=== PATIENT | male | born 1980 | race Caucasian/White ===

== ENCOUNTER 2017-09-08 00:41 | Inpatient (IN) | payer MEDICARE, MEDICAID ==
[~2017-09-08] VITALS: Ht 172.7 cm; Wt 78.5 kg
[~2017-09-08 00:41] MED LIST: ASCO-360 PO; FOLI1TAB15 PO; LEVE250T2 PO; LITH300T3 PO; PHEN60TA15 PO; PREG100C PO; QUET50TA PO; SERT25TA PO; TRAZ-144 PO; ZINC220T PO
[2017-09-08 08:50] VITALS: BP 132/68
[2017-09-08 10:31] VITALS: BP 132/68
[2017-09-08] MEDS: LORazepam 2 MG TABLET PO PRN ×2 (13:17→20:38)
[2017-09-08] MEDS: LamoTRIgine 100 MG TABLET PO SCH (16:55)
[2017-09-08] MEDS: LevETIRAcetam 500 MG TABLET PO SCH (16:55)
[2017-09-08 17:11] VITALS: BP 104/58
[2017-09-08 17:12] VITALS: BP 104/58
[2017-09-08] MEDS ORDERED: IBUPROFEN 400 MG TABLET PO PRN (18:45)
[2017-09-08] MEDS ORDERED: ACETAMINOPHEN 325 MG TABLET PO PRN (18:45)
[2017-09-08 20:36] VITALS: BP 130/81
[2017-09-09 06:20] VITALS: BP 120/68
[2017-09-09] MEDS: LamoTRIgine 100 MG TABLET PO SCH (08:57)
[2017-09-09] MEDS: LevETIRAcetam 500 MG TABLET PO SCH ×2 (08:58→16:23)
[2017-09-09 09:11] LABS: BASOPHILS % (AUTO) 0.8 % (0.0-2.0); EOSINOPHILS % (AUTO) 1.1 % (1.0-6.0); HEMATOCRIT 43.2 % (41-53); HEMOGLOBIN 15.4 g/dL (13.5-17.5); LYMPHOCYTES # (AUTO) 1.5 K/uL (1.0-4.8); LYMPHOCYTES % (AUTO) 21.8 % (22.0-44.0); MEAN CORPUSCULAR HEMOGLOBIN 29.7 pg (26.0-34.0); MEAN CORPUSCULAR HGB CONC 35.5 G/dL (31.0-37.0); MEAN CORPUSCULAR VOLUME 84 fL (80-100); MONOCYTES # (AUTO) 0.4 K/uL (0.1-1.0); NEUTROPHILS # (AUTO) 4.8 K/uL (1.8-7.7); NEUTROPHILS % (AUTO) 70.3 % (40.0-70.0); PLATELET COUNT (AUTO) 130 K/uL (150-450); RED BLOOD CELL COUNT(AUTO) 5.18 MIL/uL (4.50-5.90); RED CELL DISTRIBUTION WIDTH 13.4 % (11.5-14.5)
[2017-09-09 09:23] VITALS: BP 109/52
[2017-09-09 09:30] LABS: HEMOGLOBIN A1C 5.6 % (4.5-6.2)
[2017-09-09 09:51] LABS: ALANINE AMINOTRANSFERASE 47 U/L (12-78); ALBUMIN 3.5 g/dL (3.4-5.0); ALKALINE PHOSPHATASE 77 U/L (46-116); ANION GAP 11 mmol/L (8-16); ASPARTATE AMINOTRANSFERASE 30 U/L (15-37); BILIRUBIN,TOTAL 0.9 mg/dL (0.1-1.0); CALCIUM, TOTAL 8.5 mg/dL (8.8-10.5); CARBON DIOXIDE 23 mmol/L (22-29); CHLORIDE 104 mmol/L (98-107); CHOL/HDL RATIO 6.8 (4.2-7.3); CHOLESTEROL 176 mg/dL (131-200); CREATININE 0.79 mg/dL (0.60-1.30); GLOMERULAR FILTR. RATE CALC > 60 mL/min (>60); GLUCOSE,RANDOM 91 mg/dL (70-110); HDL CHOLESTEROL 26 mg/dL (40-60); LDL CHOL (CALC.) 124 mg/dL (0-130); POTASSIUM 3.5 mmol/L (3.5-5.1); SODIUM SERUM 138 mmol/L (136-145); THYROID STIMULATING HORMONE 1.16 uIU/mL (0.36-3.74); TOTAL PROTEIN, SERUM 7.1 g/dL (6.4-8.2); TRIGLYCERIDES 130 mg/dL (15-150); UREA NITROGEN, BLOOD 18 mg/dL (7-18)
[2017-09-09] MEDS ORDERED: LORazepam 2 MG/ML VIAL IM ONE (12:00)
[2017-09-09 12:18] LABS: GLUCOMETER DEV NAME(LOC) 3EI B; GLUCOSE,POINT OF CARE 89 MG/DL (70-110)
[2017-09-09] MEDS: QUEtiapine FUMARATE 100 MG TABLET PO SCH ×2 (12:44→16:24)
[2017-09-09] MEDS ORDERED: ONDANSETRON HCL 4 MG TABLET PO PRN (12:45)
[2017-09-09 13:00] VITALS: BP 101/44
[2017-09-09 13:35] VITALS: BP 98/65
[2017-09-09 16:00] VITALS: BP 99/57
[2017-09-09] MEDS: LITHIUM CARBONATE 300 MG CAPSULE PO SCH (16:23)
[2017-09-09] MEDS: TraZODone HCL 100 MG TABLET PO SCH (20:08)
[2017-09-09 20:11] VITALS: BP 102/56
[2017-09-09] MEDS ORDERED: PHENYTOIN SODIUM 100 MG ER CAPSULE PO SCH (21:00)
[2017-09-10 00:02] VITALS: BP 98/50
[2017-09-10 04:00] VITALS: BP 104/72
[2017-09-10 08:00] VITALS: BP 108/65
[2017-09-10] MEDS: QUEtiapine FUMARATE 100 MG TABLET PO SCH ×3 (09:16→16:24)
[2017-09-10] MEDS: LevETIRAcetam 500 MG TABLET PO SCH ×2 (09:16→16:21)
[2017-09-10] MEDS: LamoTRIgine 100 MG TABLET PO SCH ×2 (09:16→16:20)
[2017-09-10] MEDS: LITHIUM CARBONATE 300 MG CAPSULE PO SCH ×2 (09:17→16:20)
[2017-09-10] MEDS: SERTRALINE HCL 50 MG TABLET PO SCH (09:17)
[2017-09-10 12:28] VITALS: BP 107/79
[2017-09-10] MEDS: LORazepam 2 MG TABLET PO PRN ×2 (12:36→19:44)
[2017-09-10 18:51] VITALS: BP 96/61
[2017-09-10 20:00] VITALS: BP 96/56
[2017-09-10] MEDS: TraZODone HCL 100 MG TABLET PO SCH (20:42)
[2017-09-10] MEDS ORDERED: LORazepam 2 MG TABLET PO ONE (22:45)
[2017-09-11 02:47] VITALS: BP 90/58
[2017-09-11 08:00] VITALS: BP 112/78
[2017-09-11] MEDS: LITHIUM CARBONATE 300 MG CAPSULE PO SCH ×2 (10:11→17:06)
[2017-09-11] MEDS: LORazepam 2 MG TABLET PO PRN (10:11)
[2017-09-11] MEDS: QUEtiapine FUMARATE 100 MG TABLET PO SCH ×3 (10:11→17:06)
[2017-09-11] MEDS: LevETIRAcetam 500 MG TABLET PO SCH ×2 (10:11→17:06)
[2017-09-11] MEDS: SERTRALINE HCL 50 MG TABLET PO SCH (10:12)
[2017-09-11] MEDS: LamoTRIgine 100 MG TABLET PO SCH ×2 (10:12→17:06)
[2017-09-11] MEDS: TraMADol HCL 50 MG TABLET PO PRN (13:34)
[2017-09-11] MEDS: TraZODone HCL 100 MG TABLET PO SCH (21:28)
[2017-09-11 21:45] VITALS: BP 102/59
[2017-09-12 08:21] VITALS: BP 94/54
[2017-09-12] MEDS: LevETIRAcetam 500 MG TABLET PO SCH ×2 (08:21→16:21)
[2017-09-12] MEDS: SERTRALINE HCL 50 MG TABLET PO SCH (08:21)
[2017-09-12] MEDS: LamoTRIgine 100 MG TABLET PO SCH ×2 (08:21→16:21)
[2017-09-12] MEDS: LORazepam 2 MG TABLET PO PRN ×3 (08:21→17:32)
[2017-09-12] MEDS: LITHIUM CARBONATE 300 MG CAPSULE PO SCH ×2 (08:21→16:21)
[2017-09-12] MEDS: QUEtiapine FUMARATE 100 MG TABLET PO SCH ×3 (08:21→16:21)
[2017-09-12] MEDS: TraMADol HCL 50 MG TABLET PO PRN (08:21)
[2017-09-12] MEDS ORDERED: LORazepam 2 MG/ML VIAL ONE (14:31)
[2017-09-12 14:47] LABS: GLUCOMETER DEV NAME(LOC) 3EX 1; GLUCOSE,POINT OF CARE 87 MG/DL (70-110)
[2017-09-12 16:00] VITALS: BP 100/57
[2017-09-12] MEDS: TraZODone HCL 100 MG TABLET PO SCH (20:26)
[2017-09-13] MEDS: LORazepam 2 MG TABLET PO PRN ×4 (03:26→19:14)
[2017-09-13 03:27] VITALS: BP 102/69
[2017-09-13 03:32] LABS: GLUCOMETER DEV NAME(LOC) 3EI B; GLUCOSE,POINT OF CARE 99 MG/DL (70-110)
[2017-09-13] MEDS: LevETIRAcetam 500 MG TABLET PO SCH ×2 (08:07→16:48)
[2017-09-13] MEDS: QUEtiapine FUMARATE 100 MG TABLET PO SCH ×3 (08:07→16:49)
[2017-09-13] MEDS: LITHIUM CARBONATE 300 MG CAPSULE PO SCH ×2 (08:08→16:49)
[2017-09-13] MEDS: SERTRALINE HCL 100 MG TABLET PO SCH (08:08)
[2017-09-13] MEDS: LamoTRIgine 100 MG TABLET PO SCH ×2 (08:08→16:49)
[2017-09-13 10:42] VITALS: BP 112/61
[2017-09-13] MEDS: TraMADol HCL 50 MG TABLET PO PRN ×2 (11:07→19:13)
[2017-09-13 13:57] LABS: GLUCOMETER DEV NAME(LOC) 3EX 1; GLUCOSE,POINT OF CARE 84 MG/DL (70-110)
[2017-09-13 17:00] VITALS: BP 121/60
[2017-09-13 19:00] VITALS: BP 107/65
[2017-09-13 20:13] VITALS: BP 98/57
[2017-09-13] MEDS: TraZODone HCL 100 MG TABLET PO SCH (20:25)
[2017-09-13 22:33] LABS: GLUCOMETER DEV NAME(LOC) 3EI B; GLUCOSE,POINT OF CARE 137 MG/DL (70-110)
[2017-09-14] VITALS (7 sets, daily range): BP systolic 90–112; BP diastolic 54–72
[2017-09-14] MEDS: HALOPERIDOL 5 MG TABLET PO PRN (00:38)
[2017-09-14] MEDS: QUEtiapine FUMARATE 100 MG TABLET PO SCH ×3 (09:00→16:28)
[2017-09-14] MEDS: SERTRALINE HCL 100 MG TABLET PO SCH (09:00)
[2017-09-14] MEDS: LITHIUM CARBONATE 300 MG CAPSULE PO SCH ×2 (09:00→16:28)
[2017-09-14] MEDS: LevETIRAcetam 500 MG TABLET PO SCH ×2 (09:00→16:28)
[2017-09-14] MEDS: LamoTRIgine 100 MG TABLET PO SCH ×2 (09:00→16:28)
[2017-09-14] MEDS: LORazepam 2 MG TABLET PO PRN ×4 (12:58→21:19)
[2017-09-14] MEDS: TraZODone HCL 100 MG TABLET PO SCH (20:25)
[2017-09-14] MEDS: TraMADol HCL 50 MG TABLET PO PRN (21:19)
[2017-09-15 04:15] VITALS: BP 114/72
[2017-09-15] MEDS: LORazepam 2 MG TABLET PO PRN ×3 (04:18→20:39)
[2017-09-15 08:30] VITALS: BP 99/57
[2017-09-15] MEDS: LevETIRAcetam 500 MG TABLET PO SCH ×2 (09:35→17:38)
[2017-09-15] MEDS: LITHIUM CARBONATE 300 MG CAPSULE PO SCH ×2 (09:35→17:38)
[2017-09-15] MEDS: QUEtiapine FUMARATE 100 MG TABLET PO SCH ×3 (09:35→17:39)
[2017-09-15] MEDS: SERTRALINE HCL 100 MG TABLET PO SCH (09:35)
[2017-09-15] MEDS: LamoTRIgine 100 MG TABLET PO SCH ×2 (09:35→17:38)
[2017-09-15] MEDS: HALOPERIDOL 5 MG TABLET PO PRN (13:09)
[2017-09-15 17:35] VITALS: BP 101/60
[2017-09-15] MEDS: TraZODone HCL 100 MG TABLET PO SCH (20:39)
[2017-09-16 06:53] VITALS: BP 116/61
[2017-09-16 08:55] VITALS: BP 112/67
[2017-09-16] MEDS: LamoTRIgine 100 MG TABLET PO SCH ×2 (09:06→17:03)
[2017-09-16] MEDS: LevETIRAcetam 500 MG TABLET PO SCH ×2 (09:06→17:03)
[2017-09-16] MEDS: SERTRALINE HCL 100 MG TABLET PO SCH (09:06)
[2017-09-16] MEDS: QUEtiapine FUMARATE 100 MG TABLET PO SCH ×3 (09:06→17:03)
[2017-09-16] MEDS: LITHIUM CARBONATE 300 MG CAPSULE PO SCH ×2 (09:06→17:03)
[2017-09-16] MEDS: LORazepam 2 MG TABLET PO PRN (09:09)
[2017-09-16] MEDS: TraMADol HCL 50 MG TABLET PO PRN (12:02)
[2017-09-16 12:04] VITALS: BP 108/67
[2017-09-16] MEDS: HALOPERIDOL 5 MG TABLET PO PRN (12:04)
[2017-09-16 13:05] VITALS: BP 103/59
[2017-09-16 16:10] VITALS: BP 117/71
[2017-09-16] MEDS: TraZODone HCL 100 MG TABLET PO SCH (20:55)
[2017-09-17] VITALS (7 sets, daily range): BP systolic 97–117; BP diastolic 59–71
[2017-09-17] MEDS: LORazepam 2 MG TABLET PO PRN ×3 (02:04→21:07)
[2017-09-17] MEDS: SERTRALINE HCL 100 MG TABLET PO SCH (08:42)
[2017-09-17] MEDS: LITHIUM CARBONATE 300 MG CAPSULE PO SCH ×2 (08:42→16:15)
[2017-09-17] MEDS: QUEtiapine FUMARATE 100 MG TABLET PO SCH ×3 (08:42→16:14)
[2017-09-17] MEDS: LamoTRIgine 100 MG TABLET PO SCH ×2 (08:42→16:15)
[2017-09-17] MEDS: LevETIRAcetam 500 MG TABLET PO SCH ×2 (08:42→16:15)
[2017-09-17 18:24] LABS: GLUCOMETER DEV NAME(LOC) 3EX 1; GLUCOSE,POINT OF CARE 207 MG/DL (70-110)
[2017-09-17] MEDS: TraMADol HCL 50 MG TABLET PO PRN (20:16)
[2017-09-17] MEDS: TraZODone HCL 100 MG TABLET PO SCH (20:16)
[2017-09-18 02:30] VITALS: BP 97/59
[2017-09-18 08:02] LABS: FREE T4 (FREE THYROXINE) 0.64 ng/dL (0.76-1.46); THYROID STIMULATING HORMONE 10.33 uIU/mL (0.36-3.74)
[2017-09-18] MEDS: LamoTRIgine 100 MG TABLET PO SCH ×2 (08:18→16:06)
[2017-09-18] MEDS: LevETIRAcetam 500 MG TABLET PO SCH ×2 (08:18→16:06)
[2017-09-18] MEDS: SERTRALINE HCL 100 MG TABLET PO SCH (08:18)
[2017-09-18] MEDS: LITHIUM CARBONATE 300 MG CAPSULE PO SCH ×2 (08:18→16:06)
[2017-09-18] MEDS: QUEtiapine FUMARATE 100 MG TABLET PO SCH ×3 (08:18→16:06)
[2017-09-18 08:45] VITALS: BP 106/64
[2017-09-18 11:12] VITALS: BP 114/63
[2017-09-18] MEDS: TraMADol HCL 50 MG TABLET PO PRN ×2 (11:12→20:08)
[2017-09-18] MEDS: LORazepam 2 MG TABLET PO PRN ×2 (11:12→20:08)
[2017-09-18 20:08] VITALS: BP 112/67
[2017-09-18] MEDS: TraZODone HCL 100 MG TABLET PO SCH (20:08)
[2017-09-18 21:33] VITALS: BP 112/67
[2017-09-18] MEDS: HALOPERIDOL 5 MG TABLET PO PRN (22:58)
[2017-09-19 02:45] VITALS: BP 99/66
[2017-09-19] MEDS: SERTRALINE HCL 100 MG TABLET PO SCH (08:00)
[2017-09-19] MEDS: LamoTRIgine 100 MG TABLET PO SCH (08:00)
[2017-09-19] MEDS: LITHIUM CARBONATE 300 MG CAPSULE PO SCH (08:00)
[2017-09-19] MEDS: QUEtiapine FUMARATE 100 MG TABLET PO SCH ×2 (08:01→12:42)
[2017-09-19] MEDS: LevETIRAcetam 500 MG TABLET PO SCH (08:01)
[2017-09-19 09:08] VITALS: BP 101/71
[2017-09-19] MEDS ORDERED: LEVOTHYROXINE SODIUM 75 MCG TABLET PO SCH (09:15)
[2017-09-19] MEDS: LORazepam 2 MG TABLET PO PRN (09:53)
[2017-09-19 09:58] VITALS: BP 116/68
[2017-09-19] MEDS: TraMADol HCL 50 MG TABLET PO PRN (09:58)
[2017-09-19] MEDS ORDERED: LAMO100 PO (10:14)
[2017-09-19] MEDS ORDERED: SERT100T12 PO (10:16)
[2017-09-19] MEDS ORDERED: LEVO25TA9 PO (10:18)
== END 2017-09-19 15:04 | disposition home or self-care (01) | DRG 885 ==
LOC: 3EX 09:00
PROVIDERS: ADMIT Psychiatry & Neurology Psychiatry; ATTEND Psychiatry & Neurology Psychiatry
DX: F33.2 Major depressive disorder, recurrent severe without psychotic features (principal); R45.851 Suicidal ideations; F25.9 Schizoaffective disorder, unspecified; G40.409 Other generalized epilepsy and epileptic syndromes, not intractable, without status epilepticus; Q07.01 Arnold-Chiari syndrome with spina bifida; G89.29 Other chronic pain; M54.9 Dorsalgia, unspecified; E03.9 Hypothyroidism, unspecified; F41.9 Anxiety disorder, unspecified; F12.90 Cannabis use, unspecified, uncomplicated; F15.90 Other stimulant use, unspecified, uncomplicated; F17.210 Nicotine dependence, cigarettes, uncomplicated; F10.10 Alcohol abuse, uncomplicated; Z59.0 Homelessness; Z71.41 Alcohol abuse counseling and surveillance of alcoholic; Z98.2 Presence of cerebrospinal fluid drainage device; Z81.8 Family history of other mental and behavioral disorders
CPT/HCPCS: 70450; 83036; 84439; 84443; 87081; G0482; J2060; Q0162

== ENCOUNTER 2017-09-25 08:21 | Inpatient (IN) | payer MEDICARE, MEDICAID ==
[~2017-09-25] VITALS: Ht 172.7 cm; Wt 79.2 kg
[~2017-09-25 08:21] MED LIST changes: -ASCO-360 PO; -FOLI1TAB15 PO; +LAMO100 PO; +LEVO25TA9 PO; -PHEN60TA15 PO; -PREG100C PO; +SERT100T12 PO; -SERT25TA PO; -ZINC220T PO
[2017-09-25 09:57] LABS: BASOPHILS % (AUTO) 0.6 % (0.0-2.0); EOSINOPHILS % (AUTO) 0.3 % (1.0-6.0); HEMATOCRIT 46.7 % (41-53); HEMOGLOBIN 16.4 g/dL (13.5-17.5); LYMPHOCYTES # (AUTO) 1.5 K/uL (1.0-4.8); LYMPHOCYTES % (AUTO) 22.1 % (22.0-44.0); MEAN CORPUSCULAR HEMOGLOBIN 30.1 pg (26.0-34.0); MEAN CORPUSCULAR HGB CONC 35.1 G/dL (31.0-37.0); MEAN CORPUSCULAR VOLUME 86 fL (80-100); MONOCYTES # (AUTO) 0.5 K/uL (0.1-1.0); NEUTROPHILS # (AUTO) 4.7 K/uL (1.8-7.7); PLATELET COUNT (AUTO) 154 K/uL (150-450); RED BLOOD CELL COUNT(AUTO) 5.44 MIL/uL (4.50-5.90); RED CELL DISTRIBUTION WIDTH 14.6 % (11.5-14.5)
[2017-09-25 10:03] LABS: ANION GAP 13 mmol/L (8-16); CALCIUM, TOTAL 9.1 mg/dL (8.8-10.5); CARBON DIOXIDE 23 mmol/L (22-29); CHLORIDE 104 mmol/L (98-107); CREATININE 0.85 mg/dL (0.60-1.30); GLOMERULAR FILTR. RATE CALC > 60 mL/min (>60); GLUCOSE,RANDOM 109 mg/dL (70-110); POTASSIUM 3.2 mmol/L (3.5-5.1); SODIUM SERUM 140 mmol/L (136-145); UREA NITROGEN, BLOOD 17 mg/dL (7-18)
[2017-09-25 10:09] LABS: ALANINE AMINOTRANSFERASE 51 U/L (12-78); ALBUMIN 4.3 g/dL (3.4-5.0); ALKALINE PHOSPHATASE 95 U/L (46-116); ASPARTATE AMINOTRANSFERASE 21 U/L (15-37); BILIRUBIN,TOTAL 1.5 mg/dL (0.1-1.0); TOTAL PROTEIN, SERUM 7.7 g/dL (6.4-8.2)
[2017-09-25 10:29] LABS: LITHIUM < 0.20 mmol/L (0.60-1.20)
[2017-09-25 10:37] LABS: AMPHET/METH SCREEN,URINE NEGATIVE (NEGATIVE); BARBITURATE SCREEN, URINE NEGATIVE (NEGATIVE); BENZODIAZEPINES SCREEN,URINE NEGATIVE (NEGATIVE); CANNABINOID SCREEN,URINE POSITIVE (NEGATIVE); COCAINE SCREEN,URINE NEGATIVE (NEGATIVE); METHADONE SCREEN, URINE NEGATIVE (NEGATIVE); OPIATE SCREEN,URINE NEGATIVE (NEGATIVE); PHENCYCLIDINE SCREEN,URINE NEGATIVE (NEGATIVE)
[2017-09-25] MEDS ORDERED: LEVE500T53 PO (10:55)
[2017-09-25] MEDS ORDERED: QUET100T PO (10:55)
[2017-09-25] MEDS ORDERED: LEVO75 PO (10:55)
[2017-09-25] MEDS ORDERED: TRAZ-147 PO (10:55)
[2017-09-25] MEDS ORDERED: LORazepam 1 MG TABLET PO ONE (11:00)
[2017-09-25] MEDS ORDERED: POTASSIUM CHLORIDE 20 MEQ ER TABLET PO ONE ×2 (11:00→17:45)
[2017-09-25 11:38] LABS: THYROID STIMULATING HORMONE 4.08 uIU/mL (0.36-3.74)
[2017-09-25] MEDS ORDERED: ONDANSETRON HCL 4 MG/2 ML VIAL IVP ONE (11:45)
[2017-09-25] MEDS ORDERED: ZOLPIDEM TARTRATE 10 MG TABLET PO PRN (13:45)
[2017-09-25 17:01] VITALS: BP 120/79
[2017-09-25] MEDS: LORazepam 2 MG TABLET PO PRN ×2 (17:20→22:16)
[2017-09-25] MEDS ORDERED: ONDANSETRON HCL 4 MG TABLET PO PRN (17:45)
[2017-09-25] MEDS: LevETIRAcetam 500 MG TABLET PO SCH (18:47)
[2017-09-26 03:15] VITALS: BP 126/60
[2017-09-26] MEDS: LORazepam 2 MG TABLET PO PRN ×3 (03:18→15:56)
[2017-09-26] MEDS: LEVOTHYROXINE SODIUM 75 MCG TABLET PO SCH (07:04)
[2017-09-26] MEDS: LevETIRAcetam 500 MG TABLET PO SCH ×2 (08:22→16:19)
[2017-09-26 09:15] VITALS: BP 128/78
[2017-09-26 17:06] VITALS: BP 110/70
[2017-09-27 05:50] VITALS: BP 133/92
[2017-09-27] MEDS: LORazepam 2 MG TABLET PO PRN ×3 (05:53→20:45)
[2017-09-27] MEDS: LEVOTHYROXINE SODIUM 75 MCG TABLET PO SCH (06:54)
[2017-09-27 07:06] LABS: BASOPHILS % (AUTO) 0.4 % (0.0-2.0); EOSINOPHILS % (AUTO) 1.6 % (1.0-6.0); HEMATOCRIT 42.6 % (41-53); LYMPHOCYTES # (AUTO) 1.8 K/uL (1.0-4.8); LYMPHOCYTES % (AUTO) 31.5 % (22.0-44.0); MEAN CORPUSCULAR HEMOGLOBIN 30.1 pg (26.0-34.0); MEAN CORPUSCULAR HGB CONC 35.3 G/dL (31.0-37.0); MEAN CORPUSCULAR VOLUME 85 fL (80-100); MONOCYTES # (AUTO) 0.5 K/uL (0.1-1.0); MONOCYTES % (AUTO) 8.7 % (2.0-9.0); NEUTROPHILS # (AUTO) 3.2 K/uL (1.8-7.7); NEUTROPHILS % (AUTO) 57.8 % (40.0-70.0); PLATELET COUNT (AUTO) 131 K/uL (150-450); RED BLOOD CELL COUNT(AUTO) 4.99 MIL/uL (4.50-5.90); RED CELL DISTRIBUTION WIDTH 14.6 % (11.5-14.5)
[2017-09-27 07:07] LABS: ALANINE AMINOTRANSFERASE 48 U/L (12-78); ALBUMIN 3.6 g/dL (3.4-5.0); ALKALINE PHOSPHATASE 77 U/L (46-116); ANION GAP 9 mmol/L (8-16); ASPARTATE AMINOTRANSFERASE 20 U/L (15-37); BILIRUBIN,TOTAL 0.9 mg/dL (0.1-1.0); CALCIUM, TOTAL 8.3 mg/dL (8.8-10.5); CARBON DIOXIDE 24 mmol/L (22-29); CHLORIDE 107 mmol/L (98-107); CREATININE 0.77 mg/dL (0.60-1.30); FREE T4 (FREE THYROXINE) 1.04 ng/dL (0.76-1.46); GLOMERULAR FILTR. RATE CALC > 60 mL/min (>60); GLUCOSE,RANDOM 88 mg/dL (70-110); POTASSIUM 3.6 mmol/L (3.5-5.1); SODIUM SERUM 140 mmol/L (136-145); THYROID STIMULATING HORMONE 2.15 uIU/mL (0.36-3.74); UREA NITROGEN, BLOOD 21 mg/dL (7-18)
[2017-09-27] MEDS: LevETIRAcetam 500 MG TABLET PO SCH ×2 (08:12→17:01)
[2017-09-27 09:56] VITALS: BP 127/78
[2017-09-27] MEDS: HALOPERIDOL 5 MG TABLET PO PRN (11:35)
[2017-09-27] MEDS: QUEtiapine FUMARATE 100 MG TABLET PO SCH ×2 (14:07→17:02)
[2017-09-27] MEDS: BENZTROPINE MESYLATE 1 MG TABLET PO SCH (17:01)
[2017-09-27] MEDS: LITHIUM CARBONATE 300 MG CAPSULE PO SCH (17:01)
[2017-09-27] MEDS: LamoTRIgine 100 MG TABLET PO SCH (17:02)
[2017-09-27] MEDS: TraZODone HCL 100 MG TABLET PO SCH (20:41)
[2017-09-27 21:09] VITALS: BP 120/67
[2017-09-28 00:58] VITALS: BP 104/64
[2017-09-28] MEDS: LEVOTHYROXINE SODIUM 75 MCG TABLET PO SCH (07:12)
[2017-09-28 08:03] VITALS: BP 118/75
[2017-09-28] MEDS: QUEtiapine FUMARATE 100 MG TABLET PO SCH ×3 (08:07→16:16)
[2017-09-28] MEDS: LITHIUM CARBONATE 300 MG CAPSULE PO SCH ×2 (08:07→16:16)
[2017-09-28] MEDS: LevETIRAcetam 500 MG TABLET PO SCH ×2 (08:07→16:16)
[2017-09-28] MEDS: LORazepam 2 MG TABLET PO PRN ×2 (08:07→14:21)
[2017-09-28] MEDS: SERTRALINE HCL 100 MG TABLET PO SCH (08:07)
[2017-09-28] MEDS: HALOPERIDOL 5 MG TABLET PO PRN ×2 (08:07→14:21)
[2017-09-28] MEDS: BENZTROPINE MESYLATE 1 MG TABLET PO SCH ×2 (08:07→16:16)
[2017-09-28] MEDS: LamoTRIgine 100 MG TABLET PO SCH ×2 (08:08→16:16)
[2017-09-28 18:59] VITALS: BP 100/54
[2017-09-28] MEDS: TraZODone HCL 100 MG TABLET PO SCH (20:23)
[2017-09-29 00:15] VITALS: BP 97/66
[2017-09-29] MEDS: LEVOTHYROXINE SODIUM 75 MCG TABLET PO SCH (07:09)
[2017-09-29 08:11] VITALS: BP 107/60
[2017-09-29] MEDS: LITHIUM CARBONATE 300 MG CAPSULE PO SCH ×2 (08:24→18:35)
[2017-09-29] MEDS: LamoTRIgine 100 MG TABLET PO SCH ×2 (08:24→18:35)
[2017-09-29] MEDS: LevETIRAcetam 500 MG TABLET PO SCH ×2 (08:24→18:35)
[2017-09-29] MEDS: BENZTROPINE MESYLATE 1 MG TABLET PO SCH ×2 (08:24→18:34)
[2017-09-29] MEDS: QUEtiapine FUMARATE 100 MG TABLET PO SCH ×3 (08:25→18:35)
[2017-09-29] MEDS: LORazepam 2 MG TABLET PO PRN (08:25)
[2017-09-29] MEDS: SERTRALINE HCL 100 MG TABLET PO SCH (08:25)
[2017-09-29] MEDS ORDERED: ACETAMINOPHEN 325 MG TABLET PO PRN (09:30)
[2017-09-29] MEDS ORDERED: IBUPROFEN 400 MG TABLET PO PRN (09:30)
[2017-09-29 10:35] VITALS: BP 112/63
[2017-09-29] MEDS: TraMADol HCL 50 MG TABLET PO PRN (10:49)
[2017-09-29 11:50] VITALS: BP 101/59
[2017-09-29] MEDS: HYDROCORTISONE 1% 30 GM OINTMENT TP SCH (18:44)
[2017-09-29] MEDS: TraZODone HCL 100 MG TABLET PO SCH (20:10)
[2017-09-29 21:22] VITALS: BP 100/75
[2017-09-30 00:25] VITALS: BP 100/62
[2017-09-30] MEDS: HALOPERIDOL 5 MG TABLET PO PRN ×2 (00:29→09:21)
[2017-09-30] MEDS: LORazepam 2 MG TABLET PO PRN ×2 (00:29→08:12)
[2017-09-30 02:20] VITALS: BP 102/65
[2017-09-30] MEDS: TraMADol HCL 50 MG TABLET PO PRN (02:24)
[2017-09-30] MEDS: LEVOTHYROXINE SODIUM 75 MCG TABLET PO SCH (07:05)
[2017-09-30] MEDS: LevETIRAcetam 500 MG TABLET PO SCH ×2 (08:11→17:03)
[2017-09-30] MEDS: BENZTROPINE MESYLATE 1 MG TABLET PO SCH ×2 (08:11→17:03)
[2017-09-30] MEDS: LamoTRIgine 100 MG TABLET PO SCH ×2 (08:11→17:03)
[2017-09-30] MEDS: LITHIUM CARBONATE 300 MG CAPSULE PO SCH ×2 (08:11→17:03)
[2017-09-30] MEDS: QUEtiapine FUMARATE 100 MG TABLET PO SCH ×3 (08:11→17:02)
[2017-09-30] MEDS: SERTRALINE HCL 100 MG TABLET PO SCH (08:12)
[2017-09-30] MEDS: HYDROCORTISONE 1% 30 GM OINTMENT TP SCH ×2 (08:12→17:16)
[2017-09-30 09:17] VITALS: BP 103/69
[2017-09-30 19:01] VITALS: BP 106/62
[2017-09-30] MEDS: TraZODone HCL 100 MG TABLET PO SCH (20:56)
[2017-10-01 01:02] VITALS: BP 97/50
[2017-10-01 06:00] VITALS: BP 105/63
[2017-10-01] MEDS: TraMADol HCL 50 MG TABLET PO PRN (06:23)
[2017-10-01] MEDS: LEVOTHYROXINE SODIUM 75 MCG TABLET PO SCH (06:52)
[2017-10-01 06:56] VITALS: BP 105/63
[2017-10-01] MEDS: LITHIUM CARBONATE 300 MG CAPSULE PO SCH (08:32)
[2017-10-01] MEDS: BENZTROPINE MESYLATE 1 MG TABLET PO SCH (08:32)
[2017-10-01] MEDS: SERTRALINE HCL 100 MG TABLET PO SCH (08:33)
[2017-10-01] MEDS: QUEtiapine FUMARATE 100 MG TABLET PO SCH ×2 (08:33→13:19)
[2017-10-01] MEDS: LORazepam 2 MG TABLET PO PRN ×2 (08:33→12:34)
[2017-10-01] MEDS: LamoTRIgine 100 MG TABLET PO SCH (08:33)
[2017-10-01] MEDS: LevETIRAcetam 500 MG TABLET PO SCH (08:33)
[2017-10-01 08:50] VITALS: BP 118/75
[2017-10-01] MEDS: HYDROCORTISONE 1% 30 GM OINTMENT TP SCH (09:32)
[2017-10-01] MEDS ORDERED: BENZ1TAB10 PO (11:33)
[2017-10-01] MEDS: HALOPERIDOL 5 MG TABLET PO PRN (12:21)
== END 2017-10-01 15:15 | disposition home or self-care (01) | DRG 885 ==
LOC: EMS 08:22 → 3EX 16:20
PROVIDERS: ADMIT Psychiatry & Neurology Psychiatry; ATTEND Psychiatry & Neurology Psychiatry
DX: F33.2 Major depressive disorder, recurrent severe without psychotic features (principal); R45.851 Suicidal ideations; G40.909 Epilepsy, unspecified, not intractable, without status epilepticus; G89.29 Other chronic pain; E03.9 Hypothyroidism, unspecified; F10.10 Alcohol abuse, uncomplicated; M54.9 Dorsalgia, unspecified; F19.10 Other psychoactive substance abuse, uncomplicated; F12.10 Cannabis abuse, uncomplicated; L40.9 Psoriasis, unspecified; J44.9 Chronic obstructive pulmonary disease, unspecified; F11.90 Opioid use, unspecified, uncomplicated; F15.90 Other stimulant use, unspecified, uncomplicated; F17.210 Nicotine dependence, cigarettes, uncomplicated; Z98.2 Presence of cerebrospinal fluid drainage device; Z91.5 Personal history of self-harm; Z59.0 Homelessness; Z86.61 Personal history of infections of the central nervous system; Z88.1 Allergy status to other antibiotic agents; Z91.040 Latex allergy status; Z82.49 Family history of ischemic heart disease and other diseases of the circulatory system; Z81.8 Family history of other mental and behavioral disorders; Z71.51 Drug abuse counseling and surveillance of drug abuser; Z71.41 Alcohol abuse counseling and surveillance of alcoholic; Z79.899 Other long term (current) drug therapy
CPT/HCPCS: 84439; 84443; 87081; 96374; 99285; G0480; J2405

== ENCOUNTER 2019-05-16 15:41 | Inpatient (IN) | payer MEDICARE, MEDICAID ==
[~2019-05-16] VITALS: Ht 172.7 cm; Wt 74.5 kg
[~2019-05-16 15:41] MED LIST changes: +BENZ1TAB10 PO; -LEVE250T2 PO; +LEVE500T53 PO; -LEVO25TA9 PO; +LEVO75 PO; +QUET100T PO; -QUET50TA PO; -TRAZ-144 PO; +TRAZ-257 PO
[2019-05-16 19:25] VITALS: BP 119/74
[2019-05-16] MEDS ORDERED: PNEUMOCOCCAL VACCINE POLYVALENT 0.5 ML VIAL [PPSV23] IM ONE (21:00)
[2019-05-17] MEDS ORDERED: ZOLPIDEM TARTRATE 10 MG TABLET PO PRN (02:15)
[2019-05-17 08:30] VITALS: BP 125/73
[2019-05-17] MEDS: LevETIRAcetam 500 MG TABLET PO SCH ×2 (08:50→16:32)
[2019-05-17] MEDS: METHADONE HCL 10 MG TABLET PO SCH (12:16)
[2019-05-17] MEDS: LORazepam 2 MG TABLET PO PRN (14:40)
[2019-05-17] MEDS ORDERED: LORazepam 2 MG/ML VIAL IM ONE (19:30)
[2019-05-17] MEDS ORDERED: LORazepam 2 MG/ML VIAL ONE (19:30)
[2019-05-17 19:40] LABS: GLUCOMETER DEV NAME(LOC) 3E.I 2; GLUCOSE,POINT OF CARE 68 MG/DL (70-110)
[2019-05-17] MEDS: MIRTAZAPINE 30 MG TABLET PO SCH (20:53)
[2019-05-17 21:01] LABS: GLUCOMETER DEV NAME(LOC) 3E.I 2; GLUCOSE,POINT OF CARE 92 MG/DL (70-110)
[2019-05-17 21:45] VITALS: BP 103/68
[2019-05-18] MEDS: LORazepam 2 MG TABLET PO PRN ×2 (04:11→16:02)
[2019-05-18 04:12] VITALS: BP 101/76
[2019-05-18] MEDS: LEVOTHYROXINE SODIUM 75 MCG TABLET PO SCH (06:50)
[2019-05-18 08:00] VITALS: BP 95/59
[2019-05-18 10:15] VITALS: BP 113/78
[2019-05-18] MEDS: LevETIRAcetam 500 MG TABLET PO SCH ×2 (10:16→16:02)
[2019-05-18] MEDS: METHADONE HCL 10 MG TABLET PO SCH (10:17)
[2019-05-18 16:53] VITALS: BP 118/81
[2019-05-18] MEDS: MIRTAZAPINE 30 MG TABLET PO SCH (20:28)
[2019-05-19] MEDS: LEVOTHYROXINE SODIUM 75 MCG TABLET PO SCH (06:48)
[2019-05-19 08:00] VITALS: BP 104/68
[2019-05-19] MEDS: LevETIRAcetam 500 MG TABLET PO SCH ×2 (09:07→16:11)
[2019-05-19] MEDS: METHADONE HCL 10 MG TABLET PO SCH (09:08)
[2019-05-19] MEDS: LORazepam 2 MG TABLET PO PRN (13:16)
[2019-05-19 17:21] VITALS: BP 93/54
[2019-05-19] MEDS: MIRTAZAPINE 30 MG TABLET PO SCH (20:24)
[2019-05-20] MEDS: LEVOTHYROXINE SODIUM 75 MCG TABLET PO SCH (06:23)
[2019-05-20 09:00] VITALS: BP 94/55
[2019-05-20] MEDS: METHADONE HCL 10 MG TABLET PO SCH ×2 (09:00→12:59)
[2019-05-20] MEDS: LevETIRAcetam 500 MG TABLET PO SCH ×2 (09:10→17:45)
[2019-05-20 12:00] VITALS: BP 126/93
[2019-05-20] MEDS: LORazepam 2 MG TABLET PO PRN ×2 (13:16→20:51)
[2019-05-20 16:45] VITALS: BP 135/84
[2019-05-20 17:07] LABS: GLUCOMETER DEV NAME(LOC) 3E.I 2; GLUCOSE,POINT OF CARE 100 MG/DL (70-110)
[2019-05-20] MEDS: MIRTAZAPINE 30 MG TABLET PO SCH (20:48)
[2019-05-20] MEDS: PHENYTOIN SODIUM 100 MG ER CAPSULE PO SCH (21:00)
[2019-05-21 02:21] VITALS: BP 109/68
[2019-05-21] MEDS: LEVOTHYROXINE SODIUM 75 MCG TABLET PO SCH (06:30)
[2019-05-21 07:34] LABS: BASOPHILS % (AUTO) 0.4 % (0.0-2.0); EOSINOPHILS % (AUTO) 3.4 % (1.0-6.0); HEMATOCRIT 44.5 % (41-53); HEMOGLOBIN 15.4 g/dL (13.5-17.5); LYMPHOCYTES % (AUTO) 52.9 % (22.0-44.0); MEAN CORPUSCULAR HEMOGLOBIN 29.7 pg (26.0-34.0); MEAN CORPUSCULAR HGB CONC 34.6 G/dL (31.0-37.0); MEAN CORPUSCULAR VOLUME 86 fL (80-100); MONOCYTES # (AUTO) 0.3 K/uL (0.1-1.0); MONOCYTES % (AUTO) 8.4 % (2.0-9.0); NEUTROPHILS # (AUTO) 1.3 K/uL (1.8-7.7); NEUTROPHILS % (AUTO) 34.9 % (40.0-70.0); PLATELET COUNT (AUTO) 119 K/uL (150-450); RED BLOOD CELL COUNT(AUTO) 5.19 MIL/uL (4.50-5.90); RED CELL DISTRIBUTION WIDTH 12.4 % (11.5-14.5)
[2019-05-21 08:15] LABS: ALANINE AMINOTRANSFERASE 45 U/L (12-78); ALBUMIN 3.5 g/dL (3.4-5.0); ALKALINE PHOSPHATASE 90 U/L (46-116); ANION GAP 7 mmol/L (8-16); ASPARTATE AMINOTRANSFERASE 20 U/L (15-37); BILIRUBIN,TOTAL 0.4 mg/dL (0.1-1.0); CALCIUM, TOTAL 8.9 mg/dL (8.8-10.5); CARBON DIOXIDE 29 mmol/L (22-29); CHLORIDE 102 mmol/L (98-107); CHOL/HDL RATIO 5.6 (4.2-7.3); CHOLESTEROL 150 mg/dL (131-200); CREATINE KINASE, TOTAL ONLY 65 U/L (39-308); CREATININE 0.73 mg/dL (0.60-1.30); FREE T4 (FREE THYROXINE) 0.93 ng/dL (0.76-1.46); GLOMERULAR FILTR. RATE CALC > 60 mL/min (>60); GLUCOSE,RANDOM 103 mg/dL (70-110); HDL CHOLESTEROL 27 mg/dL (40-60); LDL CHOL (CALC.) 98 mg/dL (0-130); POTASSIUM 4.2 mmol/L (3.5-5.1); SODIUM SERUM 138 mmol/L (136-145); THYROID STIMULATING HORMONE 2.58 uIU/mL (0.36-3.74); TOTAL PROTEIN, SERUM 6.6 g/dL (6.4-8.2); TRIGLYCERIDES 125 mg/dL (15-150); UREA NITROGEN, BLOOD 22 mg/dL (7-18)
[2019-05-21 08:31] LABS: PHENYTOIN (DILANTIN) < 0.5 mcg/mL (10.0-20.0)
[2019-05-21] MEDS: LevETIRAcetam 500 MG TABLET PO SCH ×2 (09:04→16:34)
[2019-05-21 09:12] VITALS: BP 102/60
[2019-05-21] MEDS: METHADONE HCL 10 MG TABLET PO SCH (09:12)
[2019-05-21 12:14] VITALS: BP 98/69
[2019-05-21 13:15] VITALS: BP 107/76
[2019-05-21] MEDS: HALOPERIDOL 5 MG TABLET PO PRN ×2 (13:16→17:22)
[2019-05-21] MEDS: LORazepam 2 MG TABLET PO PRN ×2 (13:17→17:22)
[2019-05-21 16:51] VITALS: BP 98/66
[2019-05-21 17:15] VITALS: BP 112/63
[2019-05-21] MEDS: PHENYTOIN SODIUM 100 MG ER CAPSULE PO SCH (20:28)
[2019-05-21] MEDS: MIRTAZAPINE 15 MG TABLET PO SCH (20:29)
[2019-05-22] MEDS: LEVOTHYROXINE SODIUM 75 MCG TABLET PO SCH (07:08)
[2019-05-22 08:30] VITALS: BP 118/68
[2019-05-22] MEDS: LevETIRAcetam 500 MG TABLET PO SCH ×2 (08:55→17:20)
[2019-05-22] MEDS: METHADONE HCL 10 MG TABLET PO SCH (09:57)
[2019-05-22 18:00] VITALS: BP 111/68
[2019-05-22] MEDS: MIRTAZAPINE 15 MG TABLET PO SCH (20:26)
[2019-05-22] MEDS: PHENYTOIN SODIUM 100 MG ER CAPSULE PO SCH (20:26)
[2019-05-23 06:21] VITALS: BP 108/65
[2019-05-23] MEDS: LEVOTHYROXINE SODIUM 75 MCG TABLET PO SCH (06:44)
[2019-05-23 08:00] VITALS: BP 119/71
[2019-05-23] MEDS: METHADONE HCL 10 MG TABLET PO SCH (09:00)
[2019-05-23] MEDS: LevETIRAcetam 500 MG TABLET PO SCH ×2 (09:00→16:14)
[2019-05-23] MEDS: HALOPERIDOL 5 MG TABLET PO PRN (16:14)
[2019-05-23] MEDS: LORazepam 2 MG TABLET PO PRN (16:14)
[2019-05-23 16:30] VITALS: BP 104/70
[2019-05-23] MEDS: PHENYTOIN SODIUM 100 MG ER CAPSULE PO SCH ×3 (20:42→21:24)
[2019-05-23] MEDS: MIRTAZAPINE 15 MG TABLET PO SCH (21:23)
[2019-05-24 05:48] LABS: GLUCOMETER DEV NAME(LOC) 3E.I 2; GLUCOSE,POINT OF CARE 89 MG/DL (70-110)
[2019-05-24 06:12] VITALS: BP 102/66
[2019-05-24] MEDS: LEVOTHYROXINE SODIUM 75 MCG TABLET PO SCH (06:40)
[2019-05-24] MEDS: METHADONE HCL 10 MG TABLET PO SCH (08:25)
[2019-05-24] MEDS: LevETIRAcetam 500 MG TABLET PO SCH ×2 (08:26→16:11)
[2019-05-24 09:37] VITALS: BP 106/62
[2019-05-24 16:53] VITALS: BP 112/63
[2019-05-24] MEDS: MIRTAZAPINE 15 MG TABLET PO SCH (20:44)
[2019-05-24] MEDS: PHENYTOIN SODIUM 100 MG ER CAPSULE PO SCH (20:44)
[2019-05-25 06:12] VITALS: BP 113/68
[2019-05-25] MEDS: LEVOTHYROXINE SODIUM 75 MCG TABLET PO SCH (07:06)
[2019-05-25] MEDS: LevETIRAcetam 500 MG TABLET PO SCH ×2 (08:50→16:13)
[2019-05-25] MEDS: METHADONE HCL 10 MG TABLET PO SCH (08:51)
[2019-05-25 09:00] VITALS: BP 92/62
[2019-05-25 16:00] VITALS: BP 119/70
[2019-05-25] MEDS: MIRTAZAPINE 15 MG TABLET PO SCH (20:00)
[2019-05-25] MEDS: PHENYTOIN SODIUM 100 MG ER CAPSULE PO SCH (20:00)
[2019-05-25] MEDS: LORazepam 2 MG TABLET PO PRN (20:01)
[2019-05-26] MEDS: LEVOTHYROXINE SODIUM 75 MCG TABLET PO SCH (06:51)
[2019-05-26] MEDS: LevETIRAcetam 500 MG TABLET PO SCH ×2 (08:08→16:12)
[2019-05-26] MEDS: METHADONE HCL 10 MG TABLET PO SCH (08:08)
[2019-05-26] MEDS: LORazepam 2 MG TABLET PO PRN ×2 (10:00→14:10)
[2019-05-26 10:29] VITALS: BP 104/59
[2019-05-26 17:09] VITALS: BP 97/50
[2019-05-26] MEDS: PHENYTOIN SODIUM 100 MG ER CAPSULE PO SCH (20:49)
[2019-05-26] MEDS: MIRTAZAPINE 15 MG TABLET PO SCH (20:49)
[2019-05-27 06:10] VITALS: BP 124/78
[2019-05-27] MEDS: LEVOTHYROXINE SODIUM 75 MCG TABLET PO SCH (06:39)
[2019-05-27] MEDS: LevETIRAcetam 500 MG TABLET PO SCH ×2 (08:51→16:33)
[2019-05-27] MEDS: METHADONE HCL 10 MG TABLET PO SCH (08:53)
[2019-05-27 10:32] VITALS: BP 112/79
[2019-05-27] MEDS: LORazepam 2 MG TABLET PO PRN ×2 (10:32→18:48)
[2019-05-27] MEDS: PHENYTOIN SODIUM 100 MG ER CAPSULE PO SCH (20:38)
[2019-05-27] MEDS: MIRTAZAPINE 15 MG TABLET PO SCH (20:38)
[2019-05-28] MEDS: LEVOTHYROXINE SODIUM 75 MCG TABLET PO SCH (07:11)
[2019-05-28] MEDS: LevETIRAcetam 500 MG TABLET PO SCH (08:31)
[2019-05-28] MEDS: METHADONE HCL 10 MG TABLET PO SCH (08:31)
[2019-05-28 08:56] VITALS: BP 110/69
[2019-05-28] MEDS: LORazepam 2 MG TABLET PO PRN (11:27)
[2019-05-28] MEDS ORDERED: LORazepam 2 MG/ML VIAL ONE (11:59)
[2019-05-28] MEDS ORDERED: LORazepam 2 MG/ML VIAL IM ONE ×2 (12:04→12:05)
[2019-05-28 12:31] LABS: GLUCOMETER DEV NAME(LOC) 3E.I 2; GLUCOSE,POINT OF CARE 85 MG/DL (70-110)
[2019-05-28] MEDS ORDERED: OXCA300T29 PO (12:32)
[2019-05-28] MEDS ORDERED: MIRT30 PO (12:32)
== END 2019-05-28 15:00 | disposition short-term general hospital (02) | DRG 885 ==
LOC: 3EX 17:50
PROVIDERS: ADMIT Psychiatry & Neurology Psychiatry; ATTEND Psychiatry & Neurology Psychiatry
PROC: 3E0234Z Introduction of Serum, Toxoid and Vaccine into Muscle, Percutaneous Approach (ICD-10-PCS; principal; 2019-05-16)
DX: F33.2 Major depressive disorder, recurrent severe without psychotic features (principal); B19.20 Unspecified viral hepatitis C without hepatic coma; F23 Brief psychotic disorder; R45.851 Suicidal ideations; E03.9 Hypothyroidism, unspecified; F19.90 Other psychoactive substance use, unspecified, uncomplicated; G40.909 Epilepsy, unspecified, not intractable, without status epilepticus; J44.9 Chronic obstructive pulmonary disease, unspecified; Z59.0 Homelessness; Z23 Encounter for immunization
CPT/HCPCS: 83036; 83735; 84439; 84443; 97116; 97162; 97165; 97530; 97535; G0378; G0482; J2060

== ENCOUNTER 2019-05-28 12:14 | Inpatient (IN) | payer MEDICARE, OTHER ==
[~2019-05-28] VITALS: Ht 172.7 cm; Wt 77.0 kg
[2019-05-28] MEDS ORDERED: 0.9% SODIUM CHLORIDE 1,000 ML BAG IV ONE (12:17)
[2019-05-28] MEDS ORDERED: OXCA300T29 PO (12:32)
[2019-05-28] MEDS ORDERED: MIRT30 PO (12:32)
[2019-05-28] MEDS ORDERED: MORPHINE SULFATE 4 MG/ML SYRINGE IVP ONE (13:45)
[2019-05-28 13:51] LABS: BASOPHILS % (AUTO) 0.4 % (0.0-2.0); EOSINOPHILS % (AUTO) 1.1 % (1.0-6.0); HEMATOCRIT 50.1 % (41-53); HEMOGLOBIN 17.2 g/dL (13.5-17.5); LYMPHOCYTES # (AUTO) 3.1 K/uL (1.0-4.8); LYMPHOCYTES % (AUTO) 44.7 % (22.0-44.0); MEAN CORPUSCULAR HEMOGLOBIN 29.6 pg (26.0-34.0); MEAN CORPUSCULAR HGB CONC 34.3 G/dL (31.0-37.0); MEAN CORPUSCULAR VOLUME 86 fL (80-100); MONOCYTES # (AUTO) 0.5 K/uL (0.1-1.0); MONOCYTES % (AUTO) 7.7 % (2.0-9.0); NEUTROPHILS # (AUTO) 3.2 K/uL (1.8-7.7); NEUTROPHILS % (AUTO) 46.1 % (40.0-70.0); PLATELET COUNT (AUTO) 152 K/uL (150-450); RED BLOOD CELL COUNT(AUTO) 5.81 MIL/uL (4.50-5.90); RED CELL DISTRIBUTION WIDTH 12.8 % (11.5-14.5)
[2019-05-28 13:55] LABS: ANION GAP 25 mmol/L (8-16); CALCIUM, TOTAL 9.7 mg/dL (8.8-10.5); CARBON DIOXIDE 14 mmol/L (22-29); CHLORIDE 101 mmol/L (98-107); CREATININE 1.14 mg/dL (0.60-1.30); GLOMERULAR FILTR. RATE CALC > 60 mL/min (>60); GLUCOSE,RANDOM 112 mg/dL (70-110); POTASSIUM 3.9 mmol/L (3.5-5.1); SODIUM SERUM 140 mmol/L (136-145); UREA NITROGEN, BLOOD 20 mg/dL (7-18)
[2019-05-28 14:01] LABS: ALANINE AMINOTRANSFERASE 48 U/L (12-78); ALBUMIN 4.4 g/dL (3.4-5.0); ALKALINE PHOSPHATASE 117 U/L (46-116); ASPARTATE AMINOTRANSFERASE 20 U/L (15-37); BILIRUBIN,TOTAL 0.4 mg/dL (0.1-1.0); TOTAL PROTEIN, SERUM 8.3 g/dL (6.4-8.2)
[2019-05-28] MEDS ORDERED: ACETAMINOPHEN 325 MG TABLET PO PRN ×2 (15:15→15:45)
[2019-05-28] MEDS ORDERED: ONDANSETRON HCL 4 MG/2 ML VIAL IVP PRN ×2 (15:15→15:30)
[2019-05-28] MEDS ORDERED: BISACODYL 10 MG RECTAL RECTAL SUPPOSITORY PR PRN (15:30)
[2019-05-28] MEDS ORDERED: ZOLPIDEM TARTRATE 5 MG TABLET PO PRN (15:30)
[2019-05-28] MEDS ORDERED: ALBUTEROL SULFATE 2.5 MG/0.5 ML NEB SOLUTION NEB PRN (15:30)
[2019-05-28] MEDS ORDERED: MAGNESIUM HYDROXIDE SUSPENSION 30 ML UDCUP PO PRN (15:30)
[2019-05-28] MEDS ORDERED: IPRATROPIUM BROMIDE 0.5 MG/2.5 ML NEB SOLUTION NEB PRN (15:30)
[2019-05-28] MEDS ORDERED: IBUPROFEN 600 MG TABLET PO PRN (15:45)
[2019-05-28 20:34] VITALS: BP 114/77
[2019-05-28] MEDS: LamoTRIgine 100 MG TABLET PO SCH (20:39)
[2019-05-28] MEDS: OXcarbazepine 300 MG TABLET PO SCH (20:41)
[2019-05-28] MEDS: LevETIRAcetam 500 MG TABLET PO SCH (20:41)
[2019-05-28] MEDS: PHENYTOIN SODIUM 100 MG ER CAPSULE PO SCH ×2 (20:41→21:00)
[2019-05-28] MEDS ORDERED: MIRTAZAPINE 30 MG TABLET PO SCH (21:00)
[2019-05-28 23:56] VITALS: BP 107/58
[2019-05-29 04:16] VITALS: BP 102/59
[2019-05-29] MEDS ORDERED: LEVOTHYROXINE SODIUM 75 MCG TABLET PO SCH (06:30)
[2019-05-29 07:15] LABS: BASOPHILS % (AUTO) 0.4 % (0.0-2.0); EOSINOPHILS % (AUTO) 1.8 % (1.0-6.0); HEMATOCRIT 40.9 % (41-53); HEMOGLOBIN 14.2 g/dL (13.5-17.5); LYMPHOCYTES # (AUTO) 1.9 K/uL (1.0-4.8); LYMPHOCYTES % (AUTO) 50.2 % (22.0-44.0); MEAN CORPUSCULAR HEMOGLOBIN 29.5 pg (26.0-34.0); MEAN CORPUSCULAR HGB CONC 34.7 G/dL (31.0-37.0); MEAN CORPUSCULAR VOLUME 85 fL (80-100); MONOCYTES # (AUTO) 0.2 K/uL (0.1-1.0); MONOCYTES % (AUTO) 6.1 % (2.0-9.0); NEUTROPHILS # (AUTO) 1.6 K/uL (1.8-7.7); NEUTROPHILS % (AUTO) 41.5 % (40.0-70.0); PLATELET COUNT (AUTO) 103 K/uL (150-450); RED BLOOD CELL COUNT(AUTO) 4.81 MIL/uL (4.50-5.90); RED CELL DISTRIBUTION WIDTH 12.3 % (11.5-14.5)
[2019-05-29 07:40] LABS: ANION GAP 9 mmol/L (8-16); CALCIUM, TOTAL 9.2 mg/dL (8.8-10.5); CARBON DIOXIDE 26 mmol/L (22-29); CHLORIDE 106 mmol/L (98-107); CHOL/HDL RATIO 5.2 (4.2-7.3); CHOLESTEROL 130 mg/dL (131-200); CREATINE KINASE, TOTAL ONLY 119 U/L (39-308); CREATININE 0.91 mg/dL (0.60-1.30); FREE T4 (FREE THYROXINE) 0.91 ng/dL (0.76-1.46); GLOMERULAR FILTR. RATE CALC > 60 mL/min (>60); GLUCOSE,RANDOM 85 mg/dL (70-110); HDL CHOLESTEROL 25 mg/dL (40-60); LDL CHOL (CALC.) 90 mg/dL (0-130); PHENYTOIN (DILANTIN) 2.4 mcg/mL (10.0-20.0); POTASSIUM 3.8 mmol/L (3.5-5.1); SODIUM SERUM 141 mmol/L (136-145); THYROID STIMULATING HORMONE 1.34 uIU/mL (0.36-3.74); TRIGLYCERIDES 76 mg/dL (15-150); UREA NITROGEN, BLOOD 17 mg/dL (7-18)
[2019-05-29 07:51] LABS: HEMOGLOBIN A1C 4.9 % (4.5-6.2)
[2019-05-29 08:12] VITALS: BP 95/58
[2019-05-29] MEDS: LamoTRIgine 100 MG TABLET PO SCH (08:55)
[2019-05-29] MEDS: LevETIRAcetam 500 MG TABLET PO SCH (08:55)
[2019-05-29] MEDS: OXcarbazepine 300 MG TABLET PO SCH (08:57)
[2019-05-29] MEDS ORDERED: PANTOPRAZOLE SODIUM 40 MG DR TABLET PO SCH (09:00)
[2019-05-29] MEDS ORDERED: LORazepam 2 MG TABLET PO PRN (11:00)
[2019-05-29] MEDS ORDERED: METHADONE HCL 10 MG TABLET PO SCH (11:00)
[2019-05-29 11:24] VITALS: BP 98/53
[2019-05-29] MEDS ORDERED: LORazepam 2 MG/ML VIAL IVP ONE ×2 (12:30)
[2019-05-29] MEDS ORDERED: PHENYTOIN SODIUM 1,000 MG in SODIUM CHLORIDE 0.9% 150 ML IV ONE (12:45)
[2019-05-29 12:50] VITALS: BP 104/57
[2019-05-29] MEDS ORDERED: SODIUM CHLORIDE 0.9% 250 ML IV ONE (13:06)
[2019-05-29 15:56] VITALS: BP 95/58
[2019-05-29] MEDS ORDERED: LamoTRIgine 100 MG TABLET PO SCH (21:00)
[2019-05-29] MEDS ORDERED: OXcarbazepine 300 MG TABLET PO SCH (21:00)
== END 2019-05-29 19:05 | disposition left against medical advice (07) | DRG 101 ==
LOC: EMS 12:16 → 5S 18:37
PROVIDERS: ADMIT Internal Medicine Geriatric Medicine; ATTEND Internal Medicine Geriatric Medicine
DX: G40.909 Epilepsy, unspecified, not intractable, without status epilepticus (principal); E03.9 Hypothyroidism, unspecified; F32.9 Major depressive disorder, single episode, unspecified; M54.9 Dorsalgia, unspecified; F15.10 Other stimulant abuse, uncomplicated; F17.210 Nicotine dependence, cigarettes, uncomplicated; F12.90 Cannabis use, unspecified, uncomplicated; F11.90 Opioid use, unspecified, uncomplicated; J44.9 Chronic obstructive pulmonary disease, unspecified; Z53.29 Procedure and treatment not carried out because of patient's decision for other reasons; Z91.040 Latex allergy status; Z88.8 Allergy status to other drugs, medicaments and biological substances; Z98.890 Other specified postprocedural states; Z86.19 Personal history of other infectious and parasitic diseases; Q07.01 Arnold-Chiari syndrome with spina bifida; Z91.19 Patient's noncompliance with other medical treatment and regimen; Z98.2 Presence of cerebrospinal fluid drainage device; Z59.0 Homelessness
CPT/HCPCS: 70450; 72125; 74019; 80074; 80175; 83036; 83605; 83735; 84439; 84443; 86592; 87081; 95816; 96374; G0482; J1165; J2060; J2270; J2405; J7030; J7050

== ENCOUNTER 2019-06-03 09:32 | Emergency (ER) | payer MEDICARE, OTHER ==
[~2019-06-03] VITALS: Ht 172.7 cm; Wt 75.0 kg
[~2019-06-03 09:32] MED LIST changes: +MIRT30 PO; +OXCA300T29 PO
[2019-06-03 09:57] VITALS: BP 112/46
== END 2019-06-03 10:39 | disposition home or self-care (01) ==
LOC: EMS 09:35
DX: F32.9 Major depressive disorder, single episode, unspecified (principal); J44.9 Chronic obstructive pulmonary disease, unspecified; F17.210 Nicotine dependence, cigarettes, uncomplicated; F11.20 Opioid dependence, uncomplicated; F12.90 Cannabis use, unspecified, uncomplicated; Z59.0 Homelessness; Z98.890 Other specified postprocedural states; Z88.1 Allergy status to other antibiotic agents; Z91.040 Latex allergy status